=== PATIENT | male | born 2000 | race American Indian/Alaskan Native ===

== ENCOUNTER 2022-09-28 11:38 | Emergency (ER) | payer SELFPAY ==
[2022-09-28] MEDS: Acetaminophen 500 MG Tab PO ONE (12:15)
[2022-09-28] MEDS: Ibuprofen 800 MG Tab PO ONE (12:15)
[2022-09-28 12:16] LABS: ESTIMATED GFR 98 mL/min (>60)
== END 2022-09-28 13:14 | disposition home or self-care (01) ==
LOC: FB.ED 11:38
DX: R07.81 Pleurodynia (principal)
CPT/HCPCS: 36415; 71045; 80053; 84484; 85025; 93005; 99285; A9270; 93010; 99283